=== PATIENT | female | born 1995 | race Caucasian/White ===

== ENCOUNTER 2020-06-25 12:06 | Inpatient (IN) | payer OTHER ==
[~2020-06-25] VITALS: Ht 160 cm; Wt 71.4 kg
[2020-06-25] VITALS (18 sets, daily range): BP systolic 92–155; BP diastolic 57–95; PULSE 51–63; TEMP 97.7–97.9
--- NOTE | 2020-06-25 11:25 | NUR ---
Amendment- patient arrives ambulatory at 1125. Dr. Estevez notifies this RN via telephone at 1126 and orders recieved to prepare patient for urgent section delivery per [facility] orders. Dr. Estevez in transit. Patient prepped for surgery.
--- NOTE | 2020-06-25 11:29 | NUR ---
Pt arrives on unit ambulatory from office with 4/10 BPP after decreased movement this am. Pt denies vaginal bleeding, LOF, and regular ctx. Changed into a clean gown. EFM and toco applied. Admission assessment completed. Consents signed. Dr. Estevez at bedside. Discusses need for urgent c/s delivery. Pt agrees to POC. Consents signed.
[~2020-06-25 12:06] MED LIST: PRENATAL MVI; SYNTHROID0.075 MG/T PO
[2020-06-25 13:01] LABS: BASO % 0.2 % (0.0-2.0); EOS % 0.1 % (0-4.0); GRAN # 7.1 (1.4-6.5); GRAN % 71.8 % (42.2-75.2); HEMOGLOBIN 13.7 g/dl (12.5-16.0); LYMPH # 1.7 (1.2-3.4); LYMPH % 17.4 % (20.0-51.0); MEAN CELL VOLUME 95 fl (80.0-100.0); MEAN CORPUSCULAR HEMOGLOBIN 32 pg (27.0-31.0); MEAN CORPUSCULAR HGB CONC 33 g/dl (33.0-37.0); MEAN PLATELET VOLUME 10.5 fl (7.4-10.4); MONO % 9.8 % (1.7-9.3); PLATELET COUNT 237 K/mm3 (130-400); RED BLOOD COUNT 4.31 M/mm3 (4.10-5.30); REDCELL DISTRIBUTION WIDTH-CV 13.6 % (11.5-14.5)
[2020-06-26 03:00] VITALS: BP 109/62; PULSE 58; TEMP 97.7
[2020-06-26 07:35] VITALS: BP 130/87; PULSE 47; TEMP 98.1
[2020-06-26 08:30] VITALS: PULSE 58
[2020-06-26] MEDS ORDERED: IBU800 M1 PO (09:50)
[2020-06-26] MEDS ORDERED: PERCOCET 325 MG1 TA2 PO (09:51)
--- NOTE | 2020-06-26 09:54 | NUR ---
Initial visit; Patient thanked Lunchroom Monitor for looking in on her and offering God's blessings and letting her know of the availability of spiritual care at [place].
--- NOTE | 2020-06-26 13:50 | NUR ---
DISCHARGE TEACHING PROVIDED-FAMILY MEMBER PICKING HER UP AND DECLINES VIDEOS. MEDICATION SCHEDULE DISCUSSED, PUMPED BREASTMILK ON ICE, BELONGINGS AND PT ESCORTED TO FAMILY MEMBERS CAR. AT [facility] WITH BABY TRANSFERRED YESTERDAY. QUESTIONS INVITED AND ANSWERED.
== END 2020-06-26 13:50 | disposition home or self-care (01) | DRG 788 ==
LOC: LDRO 12:06 → OB 12:07 → LDR 12:08 → OB 13:45
PROVIDERS: Obstetrics & Gynecology; ADMIT Student in an Organized Health Care Education/Training Program
PROC: 10D00Z1 Extraction of Products of Conception, Low, Open Approach (ICD-10-PCS; principal; 2020-06-25)
DX: O36.5930 Maternal care for other known or suspected poor fetal growth, third trimester, not applicable or unspecified (principal); Z37.0 Single live birth; O99.284 Endocrine, nutritional and metabolic diseases complicating childbirth; E03.9 Hypothyroidism, unspecified; O99.824 Streptococcus B carrier state complicating childbirth; Z3A.34 34 weeks gestation of pregnancy
CPT/HCPCS: J0690; J1100; J1885; J2405; J2590; J7120

== ENCOUNTER 2021-12-21 14:07 | Outpatient (CLI) | payer SELFPAY ==
[~2021-12-21] VITALS: Ht 160 cm; Wt 67.3 kg
[~2021-12-21 14:07] MED LIST changes: +IBU800 M1 PO; +PERCOCET 325 MG1 TA2 PO
[2021-12-21 14:20] VITALS: BP 118/70; PULSE 85; TEMP 98.1
--- NOTE | 2021-12-21 14:47 | NUR ---
1420 PATIENT HERE FROM HOME WITH COMPLAINTS THAT SHE HAS BEEN FEELING CRAMPING FOR HOUR OR SO SHE THINKS. PATIENT DENIES LEAKING OF FLUID OR BLEEDING. PATIENT STATES" I WAS SICK 3 DAYS AGO AND WAS RUNNING A FEVER, AND I HAVE NOT DRANK MUCH, BUT I WANTED TO MAKE SURE NOTHING WAS WRONG" [facility]F ON [facility] [address] BABY VERY ACTIVE. ACCELERATIONS NOTED. AUDIBLE MOVEMENT HEARD. NO CONTRACTIONS FELT OR ON THE MONITOR AT THIS TIME. ASSESSMENT COMPLETED. DR VILLA CALLED AND UPDATED ON ALL ABOVE INFORMATION. ORDERS TO MONITOPR FOR HOUR IF NO CONTRACTIONS, NO SVE NEEDED AND MAY DISCHARGE TO HOME.
[2021-12-21 15:12] VITALS: BP 95/51; PULSE 74
--- NOTE | 2021-12-21 15:12 | NUR ---
1515 NO CHANGES NOTED. NO CONTRACTIONS FELT OR ON MONITOR WHILE PATIENT HERE. ENCOURAGED PATIENT TO PUSH FLUIDS, AND KEEP REGULAR APPOINTMENT WITH DR. BRAXTON WITH ANY QUESTIONS . ALL DISCHARGE INSTRUCTIONS GIVEN AT THIS TIME WITH VERBAL UNDERSTANDING NOTED. HASBAND AT BEDSIDE ALSO. FHT 145 AND BABY VERY ACTIVE.
== END 2021-12-21 15:20 | disposition home or self-care (01) ==
LOC: LDRO 14:07
DX: O26.892 Other specified pregnancy related conditions, second trimester (principal); R25.2 Cramp and spasm; Z3A.25 25 weeks gestation of pregnancy